=== PATIENT | female | born 1950 | race Caucasian/White ===

== ENCOUNTER 2016-04-21 17:37 | Inpatient (IN) | payer BC ==
--- NOTE | 2016-04-21 18:50 | EDM.PDOC ---
ED HISTORY OF PRESENT ILLNESS - General Chief Complaint: Respiratory Problem Stated Complaint: FLUID ON LEGS AND SOB Time Seen by Provider: 04/21/16 18:30 Source: Reports: Patient, Family History Limitations: Reports: No limitations - History of Present Illness INITIAL COMMENTS - FREE TEXT/NARRATIVE: 65-year-old female with peripheral edema and congestive heart failure was just recently in the hospital for IV diuresis, had a clinic followup on and was doing reasonable but over the past 3 days has worsened, increased peripheral edema, increase shortness of breath and weakness with frequent falls. He has facial bruising and chest bruising from her falls. No significant pain. No fevers or chills. Her lower left leg is weeping from the edema. Severity: moderate Associated Symptoms: Reports: shortness of breath, other (Worsening activity tolerance). Denies: fever/chills, headaches - Related Data Allergies/ADRs: Allergies Allergy/AdvReac Type Severity Reaction Status Date / Time azithromycin Allergy Severe Difficulty Verified 04/22/16 07:40 Breathing metronidazole [From Flagyl] Allergy Intermediate Rash Verified 04/21/16 18:11 Metronidazole HCl Allergy Intermediate Rash Verified 04/21/16 18:11 [From Flagyl] sulfamethoxazole Allergy Intermediate Rash Verified 04/21/16 18:11 [From Septra] trimethoprim [From Septra] Allergy Intermediate Rash Verified 04/21/16 18:11 nickel Allergy Rash Verified 04/21/16 18:11 midazolam [From Versed] AdvReac Vomiting Verified 04/22/16 07:40 morphine AdvReac Confusion Verified 04/22/16 07:40 tape Allergy Rash Uncoded 04/21/16 18:11 Home Meds: Home Meds Estrogens, Conjugated [Premarin] 1.25 mg PO DAILY 05/16/13 [History] Gabapentin 3 tab PO QID PRN 05/16/13 [History] Calcium Carbonate/Vitamin D3 [Calcium 600 + Vit D Tablet] 4 tab PO DAILY [History] Cholecalciferol (Vitamin D3) [Vitamin D3] 1 tab PO DAILY 04/27/14 [History] Fluocinonide [Lidex 0.05% Gel] 1 applic TOP ASDIRECTED PRN 04/27/14 [History] LORazepam 0.5 mg PO TID PRN 04/27/14 [History] Thiamine HCl 1 tab PO DAILY 04/27/14 [History] Vitamin B Complex [Balanced B-100] 1 tab PO DAILY 04/27/14 [History] Albuterol Sulfate [Proair Hfa] 2 puff INH Q4H PRN 07/14/14 [History] Bumetanide [Bumex] 2 mg PO BID 07/14/14 [History] Nabumetone [Relafen] 1 tab PO BID 07/14/14 [History] Acetaminophen/Caffeine [Excedrin Tension Headache] 3 tab PO Q6HR 04/06/15 [ History] Budesonide/Formoterol [Symbicort 160-4.5 MCG] 2 puff INH BID 04/06/15 [History] Methocarbamol [Robaxin] 1,000 mg PO BEDTIME 04/09/16 [History] Methocarbamol [Robaxin] 500 mg PO BID PRN 04/09/16 [History] Levalbuterol HCl [Xopenex] 1.25 mg NEB BIDRT #120 neb 04/12/16 [Rx] Gabapentin [Gabapentin] 4 tab PO TID 04/21/16 [History] Levalbuterol HCl [Levalbuterol Concentrate] 1 ampule INH BID 04/21/16 [History] Prednisone [IMW: predniSONE] 20 mg PO DAILY 04/21/16 [History] Venlafaxine [Effexor] 37.5 mg PO DAILY 04/22/16 [History] Past Medical History Respiratory History: Reports: Bronchitis, recurrent, Pneumonia, recurrent, Sleep apnea Other Respiratory History: Endotrachial bronchial malasia. Bronchiectasis. Recent sleep study conducted on 03/30/2015 [employer] History: Reports: Other OB/BYN History: bladder sling Neurological History: Reports: Other (see below) Other Neuro History: nerve root decompression Psychiatric History: Reports: Depression - Past Surgical History GI Surgical History: Reports: Appendectomy, Bariatric procedure, Cholecystectomy , Colonoscopy, EGD, Hernia repair/other, Other (see below) Other GI Surgeries/Procedures: Paniculectomy Other Musculoskeletal Surgeries/Procedures:: Foot surgery. ankle surgery. Nerve stimulator implant Social & Family History - Family History Family Medical History: Noncontributory - Tobacco Use Smoking Status *Q: Never Smoker Second Hand Smoke Exposure: Yes - Caffeine Use Caffeine Use: Reports: Coffee Other Caffeine Use: 1 to 2 cups per day - Alcohol Use Days Per Week of Alcohol Use: 7 Number of Drinks Per Day: 1 Total Drinks Per Week: 7 - Recreational Drug Use Recreational Drug Use: No - Living Situation & Occupation Living situation: Reports: , with spouse Occupation: disabled ED ROS GENERAL - Review of Systems Review Of Systems: See Below Constitutional: Reports: malaise, weakness. Denies: fever, chills HEENT: Reports: No symptoms Respiratory: Reports: shortness of breath. Denies: cough Cardiovascular: Reports: Lightheadedness, Syncope. Denies: Chest pain, Palpitations GI/Abdominal: Denies: Abdominal pain, Nausea, Vomiting : Reports: no symptoms Skin: Reports: bruising Neurological: Reports: syncope, weakness Psychiatric: Reports: No symptoms ED EXAM, GENERAL - Physical Exam Exam: See Below Exam Limited By: No limitations General Appearance: alert, no apparent distress (Patient has a normal O2 saturation at rest but does appear to be somewhat short of breath) Respiratory/Chest: no respiratory distress, crackles (A few extreme basilar crackles but overall good air movement) Cardiovascular: regular rate, rhythm. No: tachycardia GI/Abdominal: non tender Extremities: pedal edema (2+ pedal edema of both lower extremities with some weeping of serosanguinous fluid from the left lower leg) Neurological: alert, oriented Psychiatric: normal affect, normal mood Skin Exam: Other (Patient has widespread bruising of the chest and face as well as her arms) Course - Vital Signs Last Recorded V/S: Last Vital Signs Temp 97.3 F 04/22/16 14:36 Pulse 82 04/22/16 14:36 Resp 17 04/22/16 14:36 BP 115/78 04/22/16 14:36 Pulse Ox 90 L 04/22/16 14:36 - Orders/Labs/Meds Orders: Active Orders 24 hr Category Date Time Status CULTURE BLOOD [BC] Urgent Lab 04/21/16 19:50 Received CULTURE BLOOD [BC] Urgent Lab 04/21/16 20:00 Received Blood Culture x2 Reflex Set [OM.PC] Urgent Oth 04/21/16 19:44 Ordered Medication Orders Albuterol (Proventil Neb Soln) 2.5 mg NEB Q4H PRN PRN Reason: Shortness Of Breath/wheezing Albuterol/Ipratropium (Duoneb 3.0-0.5 Mg/3 Ml) 3 ml NEB QID PRN PRN Reason: Shortness Of Breath/wheezing Bisacodyl (Dulcolax) 5 mg PO DAILY PRN PRN Reason: Constipation Docusate Sodium (Colace) 100 mg PO BID PRN PRN Reason: Constipation Estrogens Conjugated (Premarin) 1.25 mg PO DAILY [facility] Last Admin: 04/22/16 16:09 Dose: 1.25 mg Hydromorphone HCl (Dilaudid) 1 mg IVPUSH Q2H PRN PRN Reason: Pain Lorazepam (Ativan) 1 mg IV Q6H PRN PRN Reason: Nausea/Vomiting Lorazepam (Ativan) 0.5 mg PO TID PRN PRN Reason: anxiety Last Admin: 04/22/16 16:10 Dose: 0.5 mg Admin: 04/22/16 09:45 Dose: 0.5 mg Admin: 04/22/16 00:35 Dose: 0.5 mg Methocarbamol (Robaxin) 500 mg PO BID PRN PRN Reason: Pain Last Admin: 04/22/16 16:10 Dose: 500 mg Admin: 04/22/16 09:44 Dose: 500 mg Methocarbamol (Robaxin) 1,000 mg PO BEDTIME [facility] Mometasone Furoate/Formoterol Fumar (Dulera 200-5 Mcg) 0 puff IH BIDRT [facility] Last Admin: 04/22/16 08:52 Dose: 2 puff Ondansetron HCl (Zofran Odt) 4 mg PO Q6H PRN PRN Reason: Nausea able to take PO Oxycodone/Acetaminophen (Percocet 325-5 Mg) 0 tab PO Q4H PRN PRN Reason: Pain Last Admin: 04/22/16 00:35 Dose: 1 tab Pantoprazole Sodium (Protonix Iv) 40 mg IVPUSH BEDTIME [facility] Sodium Chloride (Saline Flush) 10 ml FLUSH ASDIRECTED PRN PRN Reason: Keep Vein Open Thiamine HCl (Vitamin B-1) 100 mg PO DAILY [facility] Last Admin: 04/22/16 09:31 Dose: 100 mg Venlafaxine HCl (Effexor Xr) 37.5 mg PO DAILY [facility] Last Admin: 04/22/16 16:09 Dose: 37.5 mg Zolpidem Tartrate (Ambien) 5 mg PO BEDTIME PRN PRN Reason: Sleep Last Admin: 04/22/16 00:35 Dose: 5 mg Labs: Laboratory Tests 04/21/16 04/21/16 04/21/16 Range/Units 18:42 18:42 19:30 WBC 18.7 H (4.5-11.0) K/uL RBC 3.49 (3.30-5.50) M/uL Hgb 10.2 L (12.0-15.0) g/dL Hct 31.2 L (36.0-48.0) % MCV 89 (80-98) fL MCH 29 (27-31) pg MCHC 33 (32-36) % Plt Count 361 (150-400) K/uL Neut % (Auto) 93 H (36-66) % Lymph % (Auto) 4 L (24-44) % [place] % (Auto) 3 (2-6) % Eos % (Auto) 0 L (2-4) % Baso % (Auto) 0 (0-1) % PT 10.3 (9.5-12.0) sec INR 0.97 (0.80-1.20) Sodium 140 (140-148) mmol/L Potassium 2.3 L* (3.6-5.2) mmol/L Chloride 100 (100-108) mmol/L Carbon Dioxide 30 (21-32) mmol/L Anion Gap 12.3 (5.0-14.0) mmol/L BUN 15 D (7-18) mg/dL Creatinine 1.2 H (0.6-1.0) mg/dL Est Cr Clr Drug Dosing 34.02 mL/min Estimated GFR (MDRD) 45 L (>60) Glucose 162 H (74-106) mg/dL Lactic Acid (0.4-2.0) mmol/L Calcium 8.3 L (8.5-10.1) mg/dL Magnesium (1.8-2.4) mg/dL Total Bilirubin 1.5 H D (0.2-1.0) mg/dL AST 42 H (15-37) U/L ALT 47 D (12-78) U/L Alkaline Phosphatase 58 (46-116) U/L [id number] Pept (5-125) pg/mL Total Protein 5.9 L (6.4-8.2) g/dL Albumin 2.9 L (3.4-5.0) g/dL Globulin 3.0 (2.3-3.5) g/dL Albumin/Globulin Ratio 1.0 L (1.2-2.2) Amylase (25-115) U/L Lipase (73-393) U/L 04/21/16 04/21/16 Range/Units 19:30 19:30 WBC (4.5-11.0) K/uL RBC (3.30-5.50) M/uL Hgb (12.0-15.0) g/dL Hct (36.0-48.0) % MCV (80-98) fL MCH (27-31) pg MCHC (32-36) % Plt Count (150-400) K/uL Neut % (Auto) (36-66) % Lymph % (Auto) (24-44) % Thur[place] % (Auto) (2-6) % Eos % (Auto) (2-4) % Baso % (Auto) (0-1) % PT (9.5-12.0) sec INR (0.80-1.20) Sodium (140-148) mmol/L Potassium (3.6-5.2) mmol/L Chloride (100-108) mmol/L Carbon Dioxide (21-32) mmol/L Anion Gap (5.0-14.0) mmol/L BUN (7-18) mg/dL Creatinine (0.6-1.0) mg/dL Est Cr Clr Drug Dosing mL/min Estimated GFR (MDRD) (>60) Glucose (74-106) mg/dL Lactic Acid 2.4 H (0.4-2.0) mmol/L Calcium (8.5-10.1) mg/dL Magnesium 1.5 L (1.8-2.4) mg/dL Total Bilirubin (0.2-1.0) mg/dL AST (15-37) U/L ALT (12-78) U/L Alkaline Phosphatase (46-116) U/L Hml-B-Suwrohxaays Pept 967 H (5-125) pg/mL Total Protein (6.4-8.2) g/dL Albumin (3.4-5.0) g/dL Globulin (2.3-3.5) g/dL Albumin/Globulin Ratio (1.2-2.2) Amylase 23 L (25-115) U/L Lipase 76 (73-393) U/L Meds: Medications Generic Name Dose Route Start Last Admin Trade Name Freq PRN Reason Stop Dose Admin Albuterol 2.5 mg 04/21/16 22:24 Proventil Neb Soln NEB Q4H PRN Shortness Of Breath/wheezing Albuterol/Ipratropium 3 ml 04/21/16 22:24 Duoneb 3.0-0.5 Mg/3 Ml NEB QID PRN Shortness Of Breath/wheezing Bisacodyl 5 mg 04/21/16 22:24 Dulcolax PO DAILY PRN Constipation Docusate Sodium 100 mg 04/21/16 22:24 Colace PO BID PRN Constipation Estrogens Conjugated 1.25 mg 04/22/16 15:30 04/22/16 16:09 Premarin PO 1.25 mg DAILY CARIE Administration Hydromorphone HCl 1 mg 04/21/16 22:24 Dilaudid IVPUSH Q2H PRN Pain Lorazepam 1 mg 04/21/16 22:24 Ativan IV Q6H PRN Nausea/Vomiting Lorazepam 0.5 mg 04/21/16 22:24 04/22/16 16:10 Ativan PO 0.5 mg TID PRN Administration anxiety Methocarbamol 500 mg 04/21/16 22:24 04/22/16 16:10 Robaxin PO 500 mg BID PRN Administration Pain Methocarbamol 1,000 mg 04/22/16 21:00 Robaxin PO BEDTIME CARIE Mometasone Furoate/Formoterol Fumar 0 puff 04/22/16 08:00 04/22/16 08:52 Dulera 200-5 Mcg IH 2 puff BIDRT CARIE Administration Ondansetron HCl 4 mg 04/21/16 22:24 Zofran Odt PO Q6H PRN Nausea able to take PO Oxycodone/Acetaminophen 0 tab 04/21/16 22:24 04/22/16 00:35 Percocet 325-5 Mg PO 1 tab Q4H PRN Administration Pain Pantoprazole Sodium 40 mg 04/22/16 21:00 Protonix Iv IVPUSH BEDTIME CARIE Sodium Chloride 10 ml 04/21/16 22:24 Saline Flush FLUSH ASDIRECTED PRN Keep Vein Open Thiamine HCl 100 mg 04/22/16 09:00 04/22/16 09:31 Vitamin B-1 PO 100 mg DAILY CARIE Administration Venlafaxine HCl 37.5 mg 04/22/16 15:30 04/22/16 16:09 Effexor Xr PO 37.5 mg DAILY CARIE Administration Zolpidem Tartrate 5 mg 04/21/16 22:24 04/22/16 00:35 Ambien PO 5 mg BEDTIME PRN Administration Sleep Discontinued Medications Generic Name Dose Route Start Last Admin Trade Name Freq PRN Reason Stop Dose Admin Bumetanide 4 mg 04/21/16 20:52 04/21/16 21:03 Bumex IVPUSH 04/21/16 20:53 4 mg ONETIME ONE Administration Potassium Chloride 40 meq/ 100 mls @ 25 mls/hr 04/21/16 19:46 04/21/16 20:26 Premix IV 04/21/16 23:45 25 mls/hr ONETIME ONE Administration Sodium Chloride 1,000 mls @ 75 mls/hr 04/21/16 20:00 04/21/16 20:29 Normal Saline IV 75 mls/hr ASDIRECTED CARIE Administration Magnesium Sulfate 2 gm/ Premix 50 mls @ 12.5 mls/hr 04/21/16 22:24 04/22/16 00:33 IV 04/22/16 02:23 12.5 mls/hr ONETIME ONE Administration Potassium Chloride 20 meq/ 112 mls @ 56 mls/hr 04/22/16 08:30 04/22/16 11:33 Lidocaine HCl 2 ml/ Sodium IV 04/22/16 12:29 56 mls/hr Chloride Q2H CARIE Administration Lidocaine HCl Confirm 04/21/16 20:15 04/21/16 20:31 Xylocaine-Mpf 1% Administered 04/21/16 20:16 Not Given Dose 5 ml .ROUTE .STK-MED ONE Mometasone Furoate/Formoterol Fumar 0 puff 04/22/16 07:00 04/22/16 09:44 Dulera 200-5 Mcg IH Not Given BIDRT CARIE Potassium Chloride 40 meq 04/21/16 22:24 04/22/16 00:32 Klor-Con M20 PO 04/21/16 22:25 40 meq ONETIME ONE Administration Potassium Chloride 40 meq 04/22/16 08:00 04/22/16 09:30 Klor-Con M20 PO 04/22/16 08:01 40 meq ONETIME ONE Administration Potassium Chloride 40 meq 04/22/16 14:30 04/22/16 16:08 Klor-Con M20 PO 04/22/16 14:31 40 meq ONETIME ONE Administration - Re-Assessments/Exams Free Text/Narrative Re-Assessment/Exam: 04/21/16 18:50 A two-view chest x-ray was obtained along with a CBC and CMP. Patient will likely need readmission for diuresis. 04/21/16 19:17 Chest x-ray shows no evidence of failure and is consistent with previous chest x -ray 2 weeks ago. White count is now elevated 18,000, may be steroid effect she has no fever. Potassium is critically low at 2.3. Findings were discussed with Brittany Villa of the hospitalist service and she will assess the patient for admission. Departure - Departure Time of Disposition: 22:25 Disposition: Admitted As Inpatient 67 Condition: fair Clinical Impression: Hypokalemia, Peripheral edema Chronic obstructive lung disease Qualifiers: COPD type: chronic bronchitis Chronic bronchitis type: mixed simple and mucopurulent Qualified Code(s): J41.8 - Mixed simple and mucopurulent chronic bronchitis
[2016-04-21] MEDS ORDERED: Potassium Chloride 40 MEQ in Premix Bag 1 BAG IV ONE (19:46)
[2016-04-21] MEDS ORDERED: Sodium Chloride 0.9% 1,000 ML IV SCH (20:00)
--- NOTE | 2016-04-21 20:05 | PCM.HP ---
H&P History of Present Illness - General Date of Service: 04/21/16 Source of Information: Patient, Family (Chandrakant) - History of Present Illness Initial Comments - Free Text/Narative: INITIAL COMMENTS - FREE TEXT/NARRATIVE: 65-year-old female with peripheral edema and congestive heart failure was just recently in the hospital for IV diuresis, had a clinic followup on and was doing reasonable but over the past 3 days has worsened, increased peripheral edema, increase shortness of breath and weakness with frequent falls. He has facial bruising and chest bruising from her falls. No significant pain. No fevers or chills. Her lower left leg is weeping from the edema. Severity: moderate Associated Symptoms: Reports: shortness of breath, other (Worsening activity tolerance). Denies: fever/chills, headaches 04/21/16 18:50 A two-view chest x-ray was obtained along with a CBC and CMP. Patient will likely need readmission for diuresis. 04/21/16 19:17 Chest x-ray shows no evidence of failure and is consistent with previous chest x -ray 2 weeks ago. White count is now elevated 18,000, may be steroid effect she has no fever. Potassium is critically low at 2.3. Findings were discussed with Brittany Villa of the hospitalist service and she will assess the patient for admission. Forms: ED Department Discharge Care Plan Goals: Patient will be assessed by Brittany Villa of the hospitalist service for admission for diuresis and treatment of the hypokalemia. She may need a social service consultation for some post discharge planning. Onset of Symptoms: Reports: gradual (X3 days, but has been sick for the past couple weeks.) Duration of Symptoms: Reports: Getting worse Location: Reports: generalized Severity: moderate Improves with: Reports: Rest Worsens with: Reports: Movement Context: Reports: other ("Falls at home due to weakness) Associated Symptoms: Reports: cough (Chronic x3 years, asthma, tracheomalacia, nonsmoker.) Chest Pain Score (Numeric/FACES): 2 Denies Pain Score (Numeric/FACES): 2 - Related Data Allergies/Adverse Reactions: Allergies Allergy/AdvReac Type Severity Reaction Status Date / Time metronidazole [From Flagyl] Allergy Intermediate Rash Verified 04/21/16 18:11 Metronidazole HCl Allergy Intermediate Rash Verified 04/21/16 18:11 [From Flagyl] sulfamethoxazole Allergy Intermediate Rash Verified 04/21/16 18:11 [From Septra] trimethoprim [From Septra] Allergy Intermediate Rash Verified 04/21/16 18:11 azithromycin Allergy Difficulty Verified 04/21/16 18:11 Breathing midazolam [From Versed] Allergy Vomiting Verified 04/21/16 18:11 morphine Allergy Confusion Verified 04/21/16 18:11 nickel Allergy Rash Verified 04/21/16 18:11 tape Allergy Rash Uncoded 04/21/16 18:11 Home Medications: Home Meds Estrogens, Conjugated [Premarin] 1.25 mg PO DAILY 05/16/13 [History] Gabapentin 3 tab PO QID PRN 05/16/13 [History] Calcium Carbonate/Vitamin D3 [Calcium 600 + Vit D Tablet] 4 tab PO DAILY [History] Cholecalciferol (Vitamin D3) [Vitamin D3] 1 tab PO DAILY 04/27/14 [History] Fluocinonide [Lidex 0.05% Gel] 1 applic TOP ASDIRECTED PRN 04/27/14 [History] LORazepam 0.5 mg PO TID PRN 04/27/14 [History] Thiamine HCl 1 tab PO DAILY 04/27/14 [History] Vitamin B Complex [Balanced B-100] 1 tab PO DAILY 04/27/14 [History] Albuterol Sulfate [Proair Hfa] 2 puff INH Q4H PRN 07/14/14 [History] Bumetanide [Bumex] 2 mg PO BID 07/14/14 [History] Nabumetone [Relafen] 1 tab PO BID 07/14/14 [History] Acetaminophen/Caffeine [Excedrin Tension Headache] 3 tab PO Q6HR 04/06/15 [ History] Budesonide/Formoterol [Symbicort 160-4.5 MCG] 2 puff INH BID 04/06/15 [History] Methocarbamol [Robaxin] 500 mg PO BID 04/09/16 [History] Methocarbamol [Robaxin] 500 mg PO BID PRN 04/09/16 [History] Levalbuterol HCl [Xopenex] 1.25 mg NEB BIDRT #120 neb 04/12/16 [Rx] Gabapentin [Gabapentin] 4 tab PO TID 04/21/16 [History] Levalbuterol HCl [Levalbuterol Concentrate] 1 ampule INH BID 04/21/16 [History] Prednisone [IMW: predniSONE] 20 mg PO DAILY 04/21/16 [History] Past Medical History Respiratory History: Reports: Bronchitis, recurrent, Pneumonia, recurrent, Sleep apnea Other Respiratory History: Endotrachial bronchial malasia. Bronchiectasis. Recent sleep study conducted on 03/30/2015 [employer] History: Reports: Other OB/BYN History: bladder sling Neurological History: Reports: Other (see below) Other Neuro History: nerve root decompression Psychiatric History: Reports: Depression Dermatologic History: Reports: Other (see below) (Allergy to tape , does tolerate Tegaderm or colban) - Past Surgical History GI Surgical History: Reports: Appendectomy, Bariatric procedure, Cholecystectomy , Colonoscopy, EGD, Hernia repair/other, Other (see below) Other GI Surgeries/Procedures: Paniculectomy Other Musculoskeletal Surgeries/Procedures:: Foot surgery. ankle surgery. Nerve stimulator implant Social & Family History - Family History Family Medical History: Noncontributory - Tobacco Use Smoking Status *Q: Never Smoker Second Hand Smoke Exposure: Yes - Caffeine Use Caffeine Use: Reports: Coffee Other Caffeine Use: 1 to 2 cups per day - Alcohol Use Days Per Week of Alcohol Use: 7 Number of Drinks Per Day: 1 Total Drinks Per Week: 7 - Recreational Drug Use Recreational Drug Use: No - Living Situation & Occupation Living situation: Reports: (Lives with her Chandrakant, in [facility], 2 children.), with spouse Occupation: disabled H&P Review of Systems - Review of Systems: Review Of Systems: See Below (Out of 40 that he) General: Reports: weakness, fatigue HEENT: Reports: glasses Pulmonary: Reports: shortness of breath (With activity), cough (Chronic x3 years ) Cardiovascular: Reports: orthopnea, edema (Bilateral peripheral edema lower legs ), other (History of heart valves.) Gastrointestinal: Reports: No symptoms Genitourinary: Reports: urgency (But feels decreased amounts of urine output today) Musculoskeletal: Reports: muscle pain, muscle stiffness Skin: Reports: pallor, bruising (Noted to face, arms,u chest, abdomen, upper legs), other (Left leg with weeping clear discharge) Psychiatric: Reports: no symptoms, anxiety (Chronic) Neurological: Reports: no symptoms Hematologic/Lymphatic: Reports: easy bleeding, easy bruising Immunologic: Reports: other (Multiple allergies noted) Exam - Exam Exam: See Below - Vital Signs Vital Signs: Last Vital Signs Temp 36.7 C 04/21/16 18:25 Pulse 100 04/21/16 18:25 Resp 18 04/21/16 18:25 BP 151/79 H 04/21/16 18:25 Pulse Ox 97 04/21/16 18:25 Weight: 71.214 kg - Exam General: alert, oriented, cooperative, mild distress HEENT: PERRLA, Conjunctiva clear, EACs clear, EOMI, Hearing intact Neck: supple, trachea midline Lungs: Clear to auscultation, Normal respiratory effort Cardiovascular: regular rate, regular rhythm, other (Murmur present) Abdomen: normal bowel sounds, soft (Female) Exam: Deferred Rectal (Female) Exam: Deferred Back Exam: normal inspection, full range of motion Extremities: edema (Weeping left lower leg) Skin: warm, dry, other (Left lower leg wrapped in pad due to edema and clear discharge) Neurological: strength equal bilateral, normal speech Neuro Extensive - Mental Status: alert, oriented x3, normal mood/affect, normal cognition, memory intact Psychiatric: alert, normal affect, normal mood - Patient Data Lab Results last 24 hrs: Laboratory Results - last 24 hr 04/21/16 04/21/16 Range/Units 18:42 18:42 WBC 18.7 H (4.5-11.0) K/uL RBC 3.49 (3.30-5.50) M/uL Hgb 10.2 L (12.0-15.0) g/dL Hct 31.2 L (36.0-48.0) % MCV 89 (80-98) fL MCH 29 (27-31) pg MCHC 33 (32-36) % Plt Count 361 (150-400) K/uL Neut % (Auto) 93 H (36-66) % Lymph % (Auto) 4 L (24-44) % [place]man % (Auto) 3 (2-6) % Eos % (Auto) 0 L (2-4) % Baso % (Auto) 0 (0-1) % Sodium 140 (140-148) mmol/L Potassium 2.3 L* (3.6-5.2) mmol/L Chloride 100 (100-108) mmol/L Carbon Dioxide 30 (21-32) mmol/L Anion Gap 12.3 (5.0-14.0) mmol/L BUN 15 D (7-18) mg/dL Creatinine 1.2 H (0.6-1.0) mg/dL Est Cr Clr Drug Dosing 34.02 mL/min Estimated GFR (MDRD) 45 L (>60) Glucose 162 H (74-106) mg/dL Calcium 8.3 L (8.5-10.1) mg/dL Total Bilirubin 1.5 H D (0.2-1.0) mg/dL AST 42 H (15-37) U/L ALT 47 D (12-78) U/L Alkaline Phosphatase 58 (46-116) U/L Total Protein 5.9 L (6.4-8.2) g/dL Albumin 2.9 L (3.4-5.0) g/dL Globulin 3.0 (2.3-3.5) g/dL Albumin/Globulin Ratio 1.0 L (1.2-2.2) Result Diagrams: 04/22/16 05:00 04/22/16 05:00 *Q Meaningful Use (ADM) - VTE *Q VTE Criteria *Q: - Stroke *Q Stroke Criteria *Q: - AMI *Q AMI Criteria *Q: - Problem List (1) Hypokalemia SNOMED Code(s): 03139946 ICD Code: E87.6 - HYPOKALEMIA Status: Acute Priority: High Current Visit: Yes (2) Peripheral edema SNOMED Code(s): 507847697 ICD Code: R60.9 - EDEMA, UNSPECIFIED Status: Acute Priority: High Current Visit: Yes (3) Chronic obstructive lung disease SNOMED Code(s): 75073445 ICD Code: J44.9 - CHRONIC OBSTRUCTIVE PULMONARY DISEASE, UNSPECIFIED Status : Chronic Priority: High Current Visit: Yes Qualifiers: COPD type: chronic bronchitis Chronic bronchitis type: mixed simple and mucopurulent Qualified Code(s): J41.8 - Mixed simple and mucopurulent chronic bronchitis (4) Frequent falls SNOMED Code(s): 259100810 ICD Code: R29.6 - REPEATED FALLS Status: Acute Priority: High Current Visit: Yes Problem List Initiated/Reviewed/Updated: Yes Orders Last 24hrs: Active Orders 24 hr Category Date Time Status Chest 2V [CR] Routine Exams 04/21/16 18:36 Taken AMYLASE [CHEM] Urgent Lab 04/21/16 19:30 Received CULTURE BLOOD [BC] Urgent Lab 04/21/16 19:45 Ordered CULTURE BLOOD [BC] Urgent Lab 04/21/16 19:45 Ordered INR,PT,PROTHROMBIN TIME [COAG] Urgent Lab 04/21/16 19:30 Received LACTIC ACID [CHEM] Stat Lab 04/21/16 19:30 Received LIPASE [CHEM] Urgent Lab 04/21/16 19:30 Received MAGNESIUM [CHEM] Urgent Lab 04/21/16 19:30 Received PRO B-TYPE NATRIUR PEPT,BNPPRO [CHEM] Urgent Lab 04/21/16 19:30 Received UA W/MICROSCOPIC [URIN] Stat Lab 04/21/16 19:44 Uncollected Potassium Chloride [KCL 40 MEQ in Water 100 ML] 40 meq Med 04/21/16 19:46 Active Premix Bag 1 bag IV ONETIME Sodium Chloride 0.9% [Normal Saline] 1,000 ml Med 04/21/16 20:00 Active IV ASDIRECTED Blood Culture x2 Reflex Set [OM.PC] Urgent Oth 04/21/16 19:44 Ordered Medication Orders Potassium Chloride 40 meq/ (Premix) 100 mls @ 25 mls/hr IV ONETIME ONE Stop: 04/21/16 23:45 Sodium Chloride (Normal Saline) 1,000 mls @ 75 mls/hr IV ASDIRECTED [facility] Assessment/Plan Comment:: ASSESSMENT / PLAN This is a year-old female with peripheral edema and congestive heart failure was just recently in the hospital for IV diuresis, had a clinic followup on and was doing reasonable but over the past 3 days has worsened, increased peripheral edema, increase shortness of breath and weakness with frequent falls. He has facial bruising and chest bruising from her falls. No significant pain. No fevers or chills. Her lower left leg is weeping from the edema. Severity: moderate Associated Symptoms: Reports: shortness of breath, other (Worsening activity tolerance). Denies: fever/chills, headaches A two-view chest x-ray was obtained along with a CBC and CMP. Patient will likely need readmission for diuresis. 04/21/16 19:17 Chest x-ray shows no evidence of failure and is consistent with previous chest x -ray 2 weeks ago. White count is now elevated 18,000, may be steroid effect she has no fever. Potassium is critically low at 2.3. Plan: Admit to [address] [place] [address] Hypokalemia -Potassium IV 40 meq , PO 40 meq -Mag.Sulfate 2 gram over 4 hours -repeat K+ in am -am labs; CBC,BMP, MG++ -Tele Peripheral Edema -Bumex IV 4mg one time -will need to reassess in am -saline lock COPD -Nebulizer treatments prn -continue home medication -supplemental oxygen prn -blood cultures pending -ok to sleep in recliner, patient reports has not slept in a bed in 3 years. frequent falls as home -PT and OT evaluation -high risk for falls. Maintenance issues -Orders home meds: -Nutrition: Regular diet -Abdul catheter not indicated at this time -DVT prophylaxis: SCD -GI Prophylaxis; Protonix 40mg daily -Tape allergy; avoid all tape and adhesive except for tegaderm and colban CODE STATUS: Full Admission status: Admit to [address] [place] [address] Admission justification. This patient will be admitted for inpatient services and is medically appropriate meeting medical necessity for inpatient admission as outlined in my documentation. I reasonably expect the patient will require inpatient services that span. Time over 2 midnights. I reasonably expect this patient to be discharged or transferred within 96 hours after admission to the critical access hospital. Disposition;home with Chandrakant call [phone] for any emergency or Primary care provider: Dr. Tam
[2016-04-21] MEDS ORDERED: Bumetanide 2.5 MG/10 ML MDV IVPUSH ONE (20:52)
[2016-04-21] MEDS ORDERED: Docusate Sodium 100 MG Cap PO PRN (22:24)
[2016-04-21] MEDS ORDERED: Bisacodyl 5 MG Tab PO PRN (22:24)
[2016-04-21] MEDS ORDERED: Albuterol 0.083% 2.5 MG/3 ML Neb Soln NEB PRN (22:24)
[2016-04-21] MEDS ORDERED: Ondansetron 4 MG Tab.DIS PO PRN (22:24)
[2016-04-21] MEDS ORDERED: Potassium Chloride 20 MEQ Tab.ER PO ONE (22:24)
[2016-04-21] MEDS ORDERED: Sodium Chloride 0.9% 10 ML Syringe FLUSH PRN (22:24)
[2016-04-21] MEDS ORDERED: Albuterol/Ipratropium 3.0-0.5 MG/3 ML Neb Soln NEB PRN (22:24)
[2016-04-21] MEDS ORDERED: LORazepam 2 MG/ML MDV IV PRN (22:24)
[2016-04-21] MEDS ORDERED: Magnesium Sulfate/Water 2 GM in Premix Bag 1 BAG IV ONE (22:24)
[2016-04-21] MEDS ORDERED: HYDROmorphone 1 MG/ML Syringe IVPUSH PRN (22:24)
[2016-04-22] MEDS: Acetaminophen/oxyCODONE 325-5 MG Tab PO PRN ×2 (00:35→22:23)
[2016-04-22] MEDS: Zolpidem 5 MG Tab PO PRN ×2 (00:35→22:15)
[2016-04-22] MEDS: LORazepam 0.5 MG Tab PO PRN ×5 (00:35→23:04)
--- NOTE | 2016-04-22 06:24 | PCM.SN ---
- Free Text/Narrative Note: time : 7:01 call from [address] [place] [address]; Potassium 2.7 a; hypokalemia p; order Potassium IV 40 meq, Po 40meq, repeat Potassium in 6 hours. Mag++ pending.
[2016-04-22] MEDS ORDERED: Formoterol/Mometasone 200-5 MCG 8.8 GM Inhaler IH SCH ×2 (07:00→21:00)
[2016-04-22] MEDS ORDERED: Potassium Chloride 20 MEQ in Premix Bag 1 BAG IV SCH (07:00)
[2016-04-22] MEDS ORDERED: Potassium Chloride 20 MEQ Tab.ER PO ONE ×3 (08:00→14:30)
[2016-04-22] MEDS ORDERED: Potassium Chloride 40 MEQ in Premix Bag 1 BAG IV ONE (08:37)
[2016-04-22] MEDS: Formoterol/Mometasone 200-5 MCG 8.8 GM Inhaler IH SCH ×2 (08:52→22:13)
[2016-04-22] MEDS: Thiamine 100 MG Tab PO SCH (09:31)
[2016-04-22] MEDS: Potassium Chloride 20 MEQ, Lidocaine 1% 2 ML in Sodium Chloride 0.9% 100 ML IV SCH ×2 (09:31→11:33)
[2016-04-22] MEDS: Methocarbamol 500 MG Tab PO PRN ×2 (09:44→16:10)
--- NOTE | 2016-04-22 10:12 | CR ---
Two-view chest Comparison: 08 April 2016. Findings: The heart and vascular structures are stable. There are no infiltrates or effusions. Chron ic degenerative findings of lower thoracic spine. Stimulator leads are unchanged in position. Impression: 1. No acute findings.
--- NOTE | 2016-04-22 14:00 | PCM.PN ---
- General Info Date of Service: 04/22/16 Functional Status: Reports: pain controlled - Review of Systems General: Reports: weakness. Denies: fever, chills Pulmonary: Reports: shortness of breath. Denies: pleuritic chest pain, cough, sputum, hemoptysis, wheezing Cardiovascular: Reports: dyspnea on exertion. Denies: chest pain, palpitations , orthopnea, PND, edema, lightheadedness Gastrointestinal: Reports: No symptoms Systems Review Comment:: This patient is a 75-year-old woman who is admitted through the emergency department yesterday because of peripheral edema, increased shortness of breath , and severe hypokalemia. She's had recent difficulty with increase in peripheral edema and was started on outpatient diuretic therapy. Over the past few days has become progressively more short of breath and weak with recurrent falls. Edema has improved since admission with use of IV Bumex. Continues to report symptoms of shortness of breath, oxygen saturations have been good on current level of supplemental oxygen - Patient Data Vitals - most recent: Last Vital Signs Temp 96.7 F 04/22/16 11:23 Pulse 99 04/22/16 11:23 Resp 17 04/22/16 11:23 BP 115/70 04/22/16 11:23 Pulse Ox 95 04/22/16 11:23 Weight - most recent: 155 lb 0.006 oz I&O - last 24 hours: Intake & Output 04/21/16 04/22/16 04/22/16 22:59 06:59 14:59 Intake Total 690 790 Output Total 1200 1100 Balance -510 -310 Lab Results last 24 hrs: Laboratory Results - last 24 hr 04/21/16 04/22/16 04/22/16 Range/Units 21:15 05:00 05:00 WBC 11.3 H (4.5-11.0) K/uL RBC 3.07 L (3.30-5.50) M/uL Hgb 9.1 L (12.0-15.0) g/dL Hct 27.7 L (36.0-48.0) % MCV 90 (80-98) fL MCH 30 (27-31) pg MCHC 33 (32-36) % Plt Count 338 (150-400) K/uL Neut % (Auto) 77 H (36-66) % Lymph % (Auto) 14 L (24-44) % [facility] % (Auto) 7 H (2-6) % Eos % (Auto) 1 L (2-4) % Baso % (Auto) 0 (0-1) % Sodium 142 (140-148) mmol/L Potassium 2.7 L* (3.6-5.2) mmol/L Chloride 104 (100-108) mmol/L Carbon Dioxide 30 (21-32) mmol/L Anion Gap 10.7 (5.0-14.0) mmol/L BUN 14 (7-18) mg/dL Creatinine 1.0 (0.6-1.0) mg/dL Est Cr Clr Drug Dosing 40.82 mL/min Estimated GFR (MDRD) 56 L (>60) Glucose 101 (74-106) mg/dL Calcium 7.9 L (8.5-10.1) mg/dL Magnesium (1.8-2.4) mg/dL Urine Color Yellow Urine Appearance Slightly cloudy Urine pH 6.5 (4.5-8.0) Ur Specific [place] 1.010 (1.008-1.030) Urine Protein Negative (NEGATIVE) mg/dL Urine Glucose (UA) Normal (NEGATIVE) mg/dL Urine Ketones Negative (NEGATIVE) mg/dL Urine Occult Blood Negative (NEGATIVE) Urine Nitrite Negative (NEGATIVE) Urine Bilirubin Negative (NEGATIVE) Urine Urobilinogen Normal (NORMAL) mg/dL Ur Leukocyte Esterase Negative (NEGATIVE) Urine RBC Not seen (0-5) Urine WBC 0-5 (0-5) Ur Epithelial Cells Moderate Amorphous Sediment Not seen Urine Bacteria Moderate Urine Mucus Few Urine Other 04/22/16 Range/Units 06:24 WBC (4.5-11.0) K/uL RBC (3.30-5.50) M/uL Hgb (12.0-15.0) g/dL Hct (36.0-48.0) % MCV (80-98) fL MCH (27-31) pg MCHC (32-36) % Plt Count (150-400) K/uL Neut % (Auto) (36-66) % Lymph % (Auto) (24-44) % [facility] % (Auto) (2-6) % Eos % (Auto) (2-4) % Baso % (Auto) (0-1) % Sodium (140-148) mmol/L Potassium (3.6-5.2) mmol/L Chloride (100-108) mmol/L Carbon Dioxide (21-32) mmol/L Anion Gap (5.0-14.0) mmol/L BUN (7-18) mg/dL Creatinine (0.6-1.0) mg/dL Est Cr Clr Drug Dosing mL/min Estimated GFR (MDRD) (>60) Glucose (74-106) mg/dL Calcium (8.5-10.1) mg/dL Magnesium 2.2 D (1.8-2.4) mg/dL Urine Color Urine Appearance Urine pH (4.5-8.0) Ur Specific [place] (1.008-1.030) Urine Protein (NEGATIVE) mg/dL Urine Glucose (UA) (NEGATIVE) mg/dL Urine Ketones (NEGATIVE) mg/dL Urine Occult Blood (NEGATIVE) Urine Nitrite (NEGATIVE) Urine Bilirubin (NEGATIVE) Urine Urobilinogen (NORMAL) mg/dL Ur Leukocyte Esterase (NEGATIVE) Urine RBC (0-5) Urine WBC (0-5) Ur Epithelial Cells Amorphous Sediment Urine Bacteria Urine Mucus Urine Other Med Orders - Current: Current Medications Albuterol (Proventil Neb Soln) 2.5 mg NEB Q4H PRN PRN Reason: Shortness Of Breath/wheezing Albuterol/Ipratropium (Duoneb 3.0-0.5 Mg/3 Ml) 3 ml NEB QID PRN PRN Reason: Shortness Of Breath/wheezing Bisacodyl (Dulcolax) 5 mg PO DAILY PRN PRN Reason: Constipation Docusate Sodium (Colace) 100 mg PO BID PRN PRN Reason: Constipation Hydromorphone HCl (Dilaudid) 1 mg IVPUSH Q2H PRN PRN Reason: Pain Lorazepam (Ativan) 1 mg IV Q6H PRN PRN Reason: Nausea/Vomiting Lorazepam (Ativan) 0.5 mg PO TID PRN PRN Reason: anxiety Last Admin: 04/22/16 09:45 Dose: 0.5 mg Methocarbamol (Robaxin) 500 mg PO BID PRN PRN Reason: Pain Last Admin: 04/22/16 09:44 Dose: 500 mg Methocarbamol (Robaxin) 1,000 mg PO BEDTIME CARIE Mometasone Furoate/Formoterol Fumar (Dulera 200-5 Mcg) 0 puff IH BIDRT [facility] Last Admin: 04/22/16 08:52 Dose: 2 puff Ondansetron HCl (Zofran Odt) 4 mg PO Q6H PRN PRN Reason: Nausea able to take PO Oxycodone/Acetaminophen (Percocet 325-5 Mg) 0 tab PO Q4H PRN PRN Reason: Pain Last Admin: 04/22/16 00:35 Dose: 1 tab Pantoprazole Sodium (Protonix Iv) 40 mg IVPUSH BEDTIME [facility] Potassium Chloride (Klor-Con M20) 40 meq PO ONETIME ONE Stop: 04/22/16 13:57 Sodium Chloride (Saline Flush) 10 ml FLUSH ASDIRECTED PRN PRN Reason: Keep Vein Open Thiamine HCl (Vitamin B-1) 100 mg PO DAILY [facility] Last Admin: 04/22/16 09:31 Dose: 100 mg Zolpidem Tartrate (Ambien) 5 mg PO BEDTIME PRN PRN Reason: Sleep Last Admin: 04/22/16 00:35 Dose: 5 mg Discontinued Medications Bumetanide (Bumex) 4 mg IVPUSH ONETIME ONE Stop: 04/21/16 20:53 Last Admin: 04/21/16 21:03 Dose: 4 mg Potassium Chloride 40 meq/ (Premix) 100 mls @ 25 mls/hr IV ONETIME ONE Stop: 04/21/16 23:45 Last Admin: 04/21/16 20:26 Dose: 25 mls/hr Sodium Chloride (Normal Saline) 1,000 mls @ 75 mls/hr IV ASDIRECTED [facility] Last Admin: 04/21/16 20:29 Dose: 75 mls/hr Magnesium Sulfate 2 gm/ Premix 50 mls @ 12.5 mls/hr IV ONETIME ONE Stop: 04/22/16 02:23 Last Admin: 04/22/16 00:33 Dose: 12.5 mls/hr Potassium Chloride 20 meq/Lidocaine HCl 2 ml/ Sodium Chloride 112 mls @ 56 mls/ hr IV Q2H [facility] Stop: 04/22/16 12:29 Last Admin: 04/22/16 11:33 Dose: 56 mls/hr Lidocaine HCl (Xylocaine-Mpf 1%) Confirm Administered Dose 5 ml .ROUTE .STK-MED ONE Stop: 04/21/16 20:16 Last Admin: 04/21/16 20:31 Dose: Not Given Mometasone Furoate/Formoterol Fumar (Dulera 200-5 Mcg) 0 puff IH BIDRT [facility] Last Admin: 04/22/16 09:44 Dose: Not Given Potassium Chloride (Klor-Con M20) 40 meq PO ONETIME ONE Stop: 04/21/16 22:25 Last Admin: 04/22/16 00:32 Dose: 40 meq Potassium Chloride (Klor-Con M20) 40 meq PO ONETIME ONE Stop: 04/22/16 08:01 Last Admin: 04/22/16 09:30 Dose: 40 meq - Exam Quality Assessment: supplemental oxygen, DVT prophylaxis General: alert, oriented, cooperative, mild distress Lungs: Decreased breath sounds, Wheezing. No: Crackles, Rales, Rhonchi, Rub, Stridor Cardiovascular: regular rate, regular rhythm, no murmurs Abdomen: bowel sounds present, soft, no tenderness, no distension Extremities: no edema Skin: warm, dry, intact - Problem List Review Problem List Initiated/Reviewed/Updated: Yes - My Orders Last 24 Hours: My Active Orders 04/22/16 07:41 Consult to Physical Therapy [PT Evaluation and Treatment] [CONS] Routine 04/22/16 13:56 Potassium Chloride [Klor-Con M20] 40 meq PO ONETIME ONE 04/22/16 17:00 POTASSIUM,K [CHEM] Stat 04/23/16 05:00 BASIC METABOLIC PANEL,BMP [CHEM] Timed CBC WITH AUTO DIFF [HEME] Timed MAGNESIUM [CHEM] Timed - Plan Plan:: ASSESSMENT / PLAN COPD EXACERBATION WITH UNDERLYING TRACHEOMALACIA-increased shortness of breath with activity as well as progressive weakness -Supplemental oxygen as needed -Nebulizer therapy as needed -continue home medication -blood cultures pending -ok to sleep in recliner, patient reports has not slept in a bed in 3 years. Hypokalemia-potassium level has improved with replacement but still remains low -IV and oral potassium replacement -Recheck potassium later today and again in the a.m. Peripheral Edema-edema has improved following IV Bumex given last night -monitor for recurrent edema frequent falls as home -PT and OT evaluation -high risk for falls. -May require longterm placement at the time of discharge Maintenance issues -Nutrition: 2 g sodium diet -Abdul catheter not indicated at this time -DVT prophylaxis: SCD -GI Prophylaxis; Protonix 40mg daily -Tape allergy; avoid all tape and adhesive except for tegaderm and colban CODE STATUS: Full Admission status: Admit to [address] [place] [address] Admission justification. This patient will be admitted for inpatient services and is medically appropriate meeting medical necessity for inpatient admission as outlined in my documentation. I reasonably expect the patient will require inpatient services that span. Time over 2 midnights. I reasonably expect this patient to be discharged or transferred within 96 hours after admission to the [facility]. Disposition;discharge to home versus longterm placement for restorative physical therapy and occupational therapy Primary care provider: Dr. Tam
[2016-04-22] MEDS: Venlafaxine 37.5 MG Cap.ER PO SCH (16:09)
[2016-04-22] MEDS: Acetaminophen/Caffeine 500-65 MG Tab PO PRN (18:32)
[2016-04-22] MEDS ORDERED: Gabapentin 300 MG Cap PO PRN (21:00)
[2016-04-22] MEDS ORDERED: Gabapentin 300 MG Cap PO ONE (21:59)
[2016-04-22] MEDS: Pantoprazole 40 MG Vial IVPUSH SCH (22:15)
[2016-04-22] MEDS: Methocarbamol 500 MG Tab PO SCH (22:15)
--- NOTE | 2016-04-22 22:24 | PCM.SN ---
- Free Text/Narrative Note: time 2104; from [address] [place] [address] patient requests Neurontin four tabs which is her usual dose. a; shoulder and chronic pain p; ordered Neurontin 300 mg tablet, give four tabs now. Will reassess in the a.m.
[2016-04-23] MEDS: Formoterol/Mometasone 200-5 MCG 8.8 GM Inhaler IH SCH ×2 (07:46→21:39)
[2016-04-23] MEDS: Acetaminophen/oxyCODONE 325-5 MG Tab PO PRN ×3 (08:01→21:42)
[2016-04-23] MEDS: Thiamine 100 MG Tab PO SCH (08:03)
[2016-04-23] MEDS: Venlafaxine 37.5 MG Cap.ER PO SCH (08:04)
--- NOTE | 2016-04-23 16:06 | PCM.PN ---
- General Info Date of Service: 04/23/16 - Review of Systems General: Reports: weakness. Denies: fever, chills Pulmonary: Reports: shortness of breath. Denies: pleuritic chest pain, cough, sputum, hemoptysis, wheezing Cardiovascular: Reports: dyspnea on exertion. Denies: chest pain, palpitations , orthopnea, PND, edema, lightheadedness Gastrointestinal: Reports: No symptoms Systems Review Comment:: Ms. Florez has been stable over the past 24 hours, potassium level remains good and she's had no recurrence of her peripheral edema. Vital signs have been stable and she has remained afebrile. Continues to experience symptoms of dyspnea with exertion. - Patient Data Vitals - most recent: Last Vital Signs Temp 96.5 F 04/23/16 11:07 Pulse 97 04/23/16 11:07 Resp 17 04/23/16 11:07 BP 105/65 04/23/16 11:07 Pulse Ox 96 04/23/16 11:07 Weight - most recent: 155 lb 0.006 oz I&O - last 24 hours: Intake & Output 04/23/16 04/23/16 04/23/16 06:59 14:59 22:59 Intake Total 360 520 Output Total 300 400 Balance 60 520 -400 Lab Results last 24 hrs: Laboratory Results - last 24 hr 04/22/16 04/23/16 04/23/16 Range/Units 17:06 05:00 05:00 WBC 9.0 (4.5-11.0) K/uL RBC 3.10 L (3.30-5.50) M/uL Hgb 9.2 L (12.0-15.0) g/dL Hct 28.7 L (36.0-48.0) % MCV 93 (80-98) fL MCH 30 (27-31) pg MCHC 32 (32-36) % Plt Count 326 (150-400) K/uL Neut % (Auto) 64 (36-66) % Lymph % (Auto) 24 (24-44) % [place] % (Auto) 8 H (2-6) % Eos % (Auto) 3 (2-4) % Baso % (Auto) 0 (0-1) % Sodium (140-148) mmol/L Potassium 4.5 (3.6-5.2) mmol/L Chloride (100-108) mmol/L Carbon Dioxide (21-32) mmol/L Anion Gap (5.0-14.0) mmol/L BUN (7-18) mg/dL Creatinine (0.6-1.0) mg/dL Est Cr Clr Drug Dosing mL/min Estimated GFR (MDRD) (>60) Glucose (74-106) mg/dL Lactic Acid 1.5 (0.4-2.0) mmol/L Calcium (8.5-10.1) mg/dL Magnesium (1.8-2.4) mg/dL 04/23/16 Range/Units 05:00 WBC (4.5-11.0) K/uL RBC (3.30-5.50) M/uL Hgb (12.0-15.0) g/dL Hct (36.0-48.0) % MCV (80-98) fL MCH (27-31) pg MCHC (32-36) % Plt Count (150-400) K/uL Neut % (Auto) (36-66) % Lymph % (Auto) (24-44) % [place] % (Auto) (2-6) % Eos % (Auto) (2-4) % Baso % (Auto) (0-1) % Sodium 142 (140-148) mmol/L Potassium 4.7 (3.6-5.2) mmol/L Chloride 108 (100-108) mmol/L Carbon Dioxide 29 (21-32) mmol/L Anion Gap 5.4 (5.0-14.0) mmol/L BUN 13 (7-18) mg/dL Creatinine 0.9 (0.6-1.0) mg/dL Est Cr Clr Drug Dosing 45.36 mL/min Estimated GFR (MDRD) > 60 (>60) Glucose 82 (74-106) mg/dL Lactic Acid (0.4-2.0) mmol/L Calcium 7.6 L (8.5-10.1) mg/dL Magnesium 1.9 (1.8-2.4) mg/dL Med Orders - Current: Current Medications Acetaminophen/Caffeine (Excedrin Tension Headache) 1 - 2 tab PO Q6HR PRN PRN Reason: Headache Last Admin: 04/22/16 18:32 Dose: 2 tab Albuterol (Proventil Neb Soln) 2.5 mg NEB Q4H PRN PRN Reason: Shortness Of Breath/wheezing Albuterol/Ipratropium (Duoneb 3.0-0.5 Mg/3 Ml) 3 ml NEB QID PRN PRN Reason: Shortness Of Breath/wheezing Bisacodyl (Dulcolax) 5 mg PO DAILY PRN PRN Reason: Constipation Docusate Sodium (Colace) 100 mg PO BID PRN PRN Reason: Constipation Estrogens Conjugated (Premarin) 1.25 mg PO DAILY [facility] Last Admin: 04/23/16 08:03 Dose: 1.25 mg Furosemide (Lasix) 20 mg PO DAILY [facility] Hydromorphone HCl (Dilaudid) 1 mg IVPUSH Q2H PRN PRN Reason: Pain Lorazepam (Ativan) 1 mg IV Q6H PRN PRN Reason: Nausea/Vomiting Lorazepam (Ativan) 0.5 mg PO TID PRN PRN Reason: anxiety Last Admin: 04/22/16 23:04 Dose: 0.5 mg Methocarbamol (Robaxin) 500 mg PO BID PRN PRN Reason: Pain Last Admin: 04/22/16 16:10 Dose: 500 mg Methocarbamol (Robaxin) 1,000 mg PO BEDTIME [facility] Last Admin: 04/22/16 22:15 Dose: 1,000 mg Mometasone Furoate/Formoterol Fumar (Dulera 200-5 Mcg) 0 puff IH BIDRT [facility] Last Admin: 04/23/16 07:46 Dose: 2 puff Ondansetron HCl (Zofran Odt) 4 mg PO Q6H PRN PRN Reason: Nausea able to take PO Oxycodone/Acetaminophen (Percocet 325-5 Mg) 0 tab PO Q4H PRN PRN Reason: Pain Last Admin: 04/23/16 13:10 Dose: 1 tab Pantoprazole Sodium (Protonix Iv) 40 mg IVPUSH BEDTIME [facility] Last Admin: 04/22/16 22:15 Dose: 40 mg Sodium Chloride (Saline Flush) 10 ml FLUSH ASDIRECTED PRN PRN Reason: Keep Vein Open Thiamine HCl (Vitamin B-1) 100 mg PO DAILY [facility] Last Admin: 04/23/16 08:03 Dose: 100 mg Venlafaxine HCl (Effexor Xr) 37.5 mg PO DAILY [facility] Last Admin: 04/23/16 08:04 Dose: 37.5 mg Zolpidem Tartrate (Ambien) 5 mg PO BEDTIME PRN PRN Reason: Sleep Last Admin: 04/22/16 22:15 Dose: 5 mg Discontinued Medications Bumetanide (Bumex) 4 mg IVPUSH ONETIME ONE Stop: 04/21/16 20:53 Last Admin: 04/21/16 21:03 Dose: 4 mg Gabapentin (Neurontin) 1,200 mg PO TID PRN PRN Reason: Pain Gabapentin (Neurontin) 1,200 mg PO ONETIME ONE Stop: 04/22/16 22:00 Last Admin: 04/22/16 22:13 Dose: 1,200 mg Potassium Chloride 40 meq/ (Premix) 100 mls @ 25 mls/hr IV ONETIME ONE Stop: 04/21/16 23:45 Last Admin: 04/21/16 20:26 Dose: 25 mls/hr Sodium Chloride (Normal Saline) 1,000 mls @ 75 mls/hr IV ASDIRECTED [facility] Last Admin: 04/21/16 20:29 Dose: 75 mls/hr Magnesium Sulfate 2 gm/ Premix 50 mls @ 12.5 mls/hr IV ONETIME ONE Stop: 04/22/16 02:23 Last Admin: 04/22/16 00:33 Dose: 12.5 mls/hr Potassium Chloride 20 meq/Lidocaine HCl 2 ml/ Sodium Chloride 112 mls @ 56 mls/ hr IV Q2H [facility] Stop: 04/22/16 12:29 Last Admin: 04/22/16 11:33 Dose: 56 mls/hr Lidocaine HCl (Xylocaine-Mpf 1%) Confirm Administered Dose 5 ml .ROUTE .STK-MED ONE Stop: 04/21/16 20:16 Last Admin: 04/21/16 20:31 Dose: Not Given Mometasone Furoate/Formoterol Fumar (Dulera 200-5 Mcg) 0 puff IH BIDRT [facility] Last Admin: 04/22/16 09:44 Dose: Not Given Potassium Chloride (Klor-Con M20) 40 meq PO ONETIME ONE Stop: 04/21/16 22:25 Last Admin: 04/22/16 00:32 Dose: 40 meq Potassium Chloride (Klor-Con M20) 40 meq PO ONETIME ONE Stop: 04/22/16 08:01 Last Admin: 04/22/16 09:30 Dose: 40 meq Potassium Chloride (Klor-Con M20) 40 meq PO ONETIME ONE Stop: 04/22/16 14:31 Last Admin: 04/22/16 16:08 Dose: 40 meq - Exam Quality Assessment: DVT prophylaxis Lungs: Clear to auscultation, Normal respiratory effort, Decreased breath sounds. No: Crackles, Rales, Rhonchi, Rub, Stridor, Wheezing Cardiovascular: regular rhythm, no murmurs, tachycardia. No: irregular rhythm, bradycardia Abdomen: bowel sounds present, soft, no tenderness, no distension Extremities: no edema Skin: warm, dry, intact - Problem List Review Problem List Initiated/Reviewed/Updated: Yes - My Orders Last 24 Hours: My Active Orders 04/22/16 15:30 Estrogens, Conjugated [Premarin] 1.25 mg PO DAILY Venlafaxine [Effexor XR] 37.5 mg PO DAILY 04/22/16 18:08 Acetaminophen/Caffeine [Excedrin Tension Headache] 1 - 2 tab PO Q6HR PRN 04/22/16 Dinner 2 Gram Sodium Diet [DIET] 04/24/16 09:00 Furosemide [Lasix] 20 mg PO DAILY - Plan Plan:: ASSESSMENT / PLAN COPD EXACERBATION WITH UNDERLYING TRACHEOMALACIA-increased shortness of breath with activity as well as progressive weakness -Supplemental oxygen as needed -Nebulizer therapy as needed -continue home medication -blood cultures pending -ok to sleep in recliner, patient reports has not slept in a bed in 3 years. Hypokalemia-resolved, potassium level this morning within normal range Peripheral edema-resolved following use of IV diuretics, likely secondary to a component of cor pulmonale given her underlying pulmonary disease -Daily Lasix while hospitalized -When necessary daily Lasix after discharge frequent falls as home -PT and OT evaluation -high risk for falls. -May require correction placement at the time of discharge Maintenance issues -Nutrition: 2 g sodium diet -Abdul catheter not indicated at this time -DVT prophylaxis: SCD -GI Prophylaxis; Protonix 40mg daily -Tape allergy; avoid all tape and adhesive except for tegaderm and colban CODE STATUS: Full Admission status: Admit to [address] [place] [address] justification. This patient will be admitted for inpatient services and is medically appropriate meeting medical necessity for inpatient admission as outlined in my documentation. I reasonably expect the patient will require inpatient services that span. Time over 2 midnights. I reasonably expect this patient to be discharged or transferred within 96 hours after admission to the [facility]. Disposition;discharge to home versus correction placement for restorative physical therapy and occupational therapy Primary care provider: Dr. Tam
[2016-04-23] MEDS: Acetaminophen/Caffeine 500-65 MG Tab PO PRN (17:28)
[2016-04-23] MEDS: Loperamide 2 MG Cap PO PRN (20:34)
[2016-04-23] MEDS: Methocarbamol 500 MG Tab PO SCH (21:40)
[2016-04-23] MEDS: Pantoprazole 40 MG Vial IVPUSH SCH (21:40)
[2016-04-23] MEDS: Zolpidem 5 MG Tab PO PRN (21:41)
[2016-04-23] MEDS: LORazepam 0.5 MG Tab PO PRN (21:41)
[2016-04-24] MEDS: LORazepam 0.5 MG Tab PO PRN (03:58)
[2016-04-24] MEDS: Acetaminophen/oxyCODONE 325-5 MG Tab PO PRN ×2 (03:58→08:55)
[2016-04-24] MEDS: Formoterol/Mometasone 200-5 MCG 8.8 GM Inhaler IH SCH (07:47)
[2016-04-24 08:04] VITALS: BP 142/77
[2016-04-24] MEDS: Venlafaxine 37.5 MG Cap.ER PO SCH (08:48)
[2016-04-24] MEDS: Thiamine 100 MG Tab PO SCH (08:48)
[2016-04-24] MEDS ORDERED: Furosemide 20 MG Tab PO SCH (09:00)
--- NOTE | 2016-04-24 10:24 | PCM.DCSUM1 ---
Discharge Summary - Hospital Course Brief History: This patient is a 65-year-old woman who is admitted through the emergency department with increased weakness and recent falls at home, hypokalemia, and increased dyspnea secondary to COPD exacerbation. - Discharge Data Discharge Date: 04/24/16 Discharge Disposition: Home, W Home Health Agency 06 Condition: Fair - Discharge Diagnosis/Problem(s) (1) Edema SNOMED Code(s): 670454419, 390564903 ICD Code: R60.9 - EDEMA, UNSPECIFIED Status: Acute Current Visit: Yes (2) Hypokalemia SNOMED Code(s): 96087742 ICD Code: E87.6 - HYPOKALEMIA Status: Acute Priority: High Current Visit: Yes (3) Tracheomalacia SNOMED Code(s): 28191679 ICD Code: J39.8 - OTHER SPECIFIED DISEASES OF UPPER RESPIRATORY TRACT Status: Acute Current Visit: No (4) Frequent falls SNOMED Code(s): 295231339 ICD Code: R29.6 - REPEATED FALLS Status: Acute Priority: High Current Visit: Yes (5) Chronic obstructive lung disease SNOMED Code(s): 89952704 ICD Code: J44.9 - CHRONIC OBSTRUCTIVE PULMONARY DISEASE, UNSPECIFIED Status : Chronic Priority: High Current Visit: Yes Qualifiers: COPD type: chronic bronchitis Chronic bronchitis type: mixed simple and mucopurulent Qualified Code(s): J41.8 - Mixed simple and mucopurulent chronic bronchitis - Patient Summary/Data Consults: Consultations 04/22/16 06:20 OT Evaluation and Treatment [CONS] Routine Please Evaluate and Treat. OT Reason for Consult: Discharge Planning This query below is only for informational purposes and is not editable. Admission Diagnosis/Problem: Hypokalemia 04/22/16 07:41 Consult to Physical Therapy [PT Evaluation and Treatment] [CONS] Routine Please Evaluate and Treat. PT Reason for Consult: Other (Type Response) Special Instructions: frequent falls at home This query below is only for informational purposes and is not editable. Admission Diagnosis/Problem: Hypokalemia Hospital Course: This patient is a 65-year-old woman with known COPD and tracheomalacia. Over a period of 4 days prior to admission she developed progressive weakness with increased shortness of breath. During this period time had several falls at home resulting in marked ecchymosis of her upper extremities and chest. On evaluation emergency room was found to have significant hypokalemia and was started on IV potassium replacement. She also had some ongoing difficulty with increase in peripheral edema that was unresponsive to her home diuretic therapy. On admission she was given IV diuretics and by the following morning her peripheral edema had significantly improved. With IV and oral potassium replacement her potassium level normalized and remained within normal range through the rest of her hospital stay. She was given supplemental oxygen in addition to nebulizer therapy and IV steroids, by the time of discharge her respiratory status was back to baseline. She will be discharged home on her usual diuretic therapy and she's instructed to weigh herself daily and notify her provider if her weight increases more than 3-45 pounds over a few days. She 's also instructed to follow a strict low-sodium diet and his diet was reviewed with her prior to discharge. She will be discharged home on oral potassium supplement 20 once twice daily followup appointment has already been scheduled for her with Dr. Esquivel tomorrow. Activity will be as tolerated and she will be on a 2 g sodium diet. Given her progressive respiratory symptoms and recommended that she discuss with Dr. Esquivel the possibility of a followup appointment at [place] to reassess her Tracheomalacia and obstruction. - Patient Instructions Diet: Low Sodium Activity: As Tolerated Other/Special Instructions: Patient already has followup appointment with Dr. Tam tomorrow. - Discharge Plan Prescriptions/Med Rec: Potassium Chloride [Klor-Con M20] 20 meq PO BID #60 [email or web address] Home Medications: Home Meds Estrogens, Conjugated [Premarin] 1.25 mg PO DAILY 05/16/13 [History] Calcium Carbonate/Vitamin D3 [Calcium 600 + Vit D Tablet] 4 tab PO DAILY [History] Cholecalciferol (Vitamin D3) [Vitamin D3] 1 tab PO DAILY 04/27/14 [History] Fluocinonide [Lidex 0.05% Gel] 1 applic TOP ASDIRECTED PRN 04/27/14 [History] LORazepam 0.5 mg PO TID PRN 04/27/14 [History] Thiamine HCl 1 tab PO DAILY 04/27/14 [History] Vitamin B Complex [Balanced B-100] 1 tab PO DAILY 04/27/14 [History] Albuterol Sulfate [Proair Hfa] 2 puff INH Q4H PRN 07/14/14 [History] Bumetanide [Bumex] 2 mg PO BID 07/14/14 [History] Nabumetone [Relafen] 1 tab PO BID 07/14/14 [History] Acetaminophen/Caffeine [Excedrin Tension Headache] 3 tab PO Q6HR 04/06/15 [ History] Budesonide/Formoterol [Symbicort 160-4.5 MCG] 2 puff INH BID 04/06/15 [History] Methocarbamol [Robaxin] 1,000 mg PO BEDTIME 04/09/16 [History] Methocarbamol [Robaxin] 500 mg PO BID PRN 04/09/16 [History] Levalbuterol HCl [Xopenex] 1.25 mg NEB BIDRT #120 neb 04/12/16 [Rx] Gabapentin 4 tab PO BEDTIME PRN 04/21/16 [History] Levalbuterol HCl [Levalbuterol Concentrate] 1 ampule INH BID 04/21/16 [History] Prednisone [IMW: predniSONE] 20 mg PO DAILY 04/21/16 [History] Venlafaxine [Effexor] 37.5 mg PO DAILY 04/22/16 [History] Potassium Chloride [Klor-Con M20] 20 meq PO BID #60 [email or web address] 04/24/16 [Rx] Referrals: Cortez Tam MD [Primary Care Provider] - - Patient Data Vitals - Most Recent: Last Vital Signs Temp 96.5 F 04/24/16 08:02 Pulse 82 04/24/16 08:02 Resp 16 04/24/16 08:02 BP 142/77 H 04/24/16 08:02 Pulse Ox 97 04/24/16 08:02 Weight - Most Recent: 155 lb 0.006 oz I&O - Last 24 hours: Intake & Output 04/23/16 04/24/16 04/24/16 22:59 06:59 14:59 Output Total 900 400 Balance -900 -400 Med Orders - Current: Current Medications Acetaminophen/Caffeine (Excedrin Tension Headache) 1 - 2 tab PO Q6HR PRN PRN Reason: Headache Last Admin: 04/23/16 17:28 Dose: 2 tab Albuterol (Proventil Neb Soln) 2.5 mg NEB Q4H PRN PRN Reason: Shortness Of Breath/wheezing Albuterol/Ipratropium (Duoneb 3.0-0.5 Mg/3 Ml) 3 ml NEB QID PRN PRN Reason: Shortness Of Breath/wheezing Bisacodyl (Dulcolax) 5 mg PO DAILY PRN PRN Reason: Constipation Docusate Sodium (Colace) 100 mg PO BID PRN PRN Reason: Constipation Estrogens Conjugated (Premarin) 1.25 mg PO DAILY [facility] Last Admin: 04/24/16 08:48 Dose: 1.25 mg Furosemide (Lasix) 20 mg PO DAILY [facility] Last Admin: 04/24/16 08:48 Dose: 20 mg Hydromorphone HCl (Dilaudid) 1 mg IVPUSH Q2H PRN PRN Reason: Pain Loperamide HCl (Imodium) 2 mg PO Q4H PRN PRN Reason: Diarrhea Last Admin: 04/23/16 20:34 Dose: 2 mg Lorazepam (Ativan) 1 mg IV Q6H PRN PRN Reason: Nausea/Vomiting Lorazepam (Ativan) 0.5 mg PO TID PRN PRN Reason: anxiety Last Admin: 04/24/16 03:58 Dose: 0.5 mg Methocarbamol (Robaxin) 500 mg PO BID PRN PRN Reason: Pain Last Admin: 04/22/16 16:10 Dose: 500 mg Methocarbamol (Robaxin) 1,000 mg PO BEDTIME [facility] Last Admin: 04/23/16 21:40 Dose: 1,000 mg Mometasone Furoate/Formoterol Fumar (Dulera 200-5 Mcg) 0 puff IH BIDRT [facility] Last Admin: 04/24/16 07:47 Dose: 2 puff Ondansetron HCl (Zofran Odt) 4 mg PO Q6H PRN PRN Reason: Nausea able to take PO Oxycodone/Acetaminophen (Percocet 325-5 Mg) 0 tab PO Q4H PRN PRN Reason: Pain Last Admin: 04/24/16 08:55 Dose: 2 tab Pantoprazole Sodium (Protonix Iv) 40 mg IVPUSH BEDTIME [facility] Last Admin: 04/23/16 21:40 Dose: 40 mg Sodium Chloride (Saline Flush) 10 ml FLUSH ASDIRECTED PRN PRN Reason: Keep Vein Open Thiamine HCl (Vitamin B-1) 100 mg PO DAILY [facility] Last Admin: 04/24/16 08:48 Dose: 100 mg Venlafaxine HCl (Effexor Xr) 37.5 mg PO DAILY [facility] Last Admin: 04/24/16 08:48 Dose: 37.5 mg Zolpidem Tartrate (Ambien) 5 mg PO BEDTIME PRN PRN Reason: Sleep Last Admin: 04/23/16 21:41 Dose: 5 mg Discontinued Medications Bumetanide (Bumex) 4 mg IVPUSH ONETIME ONE Stop: 04/21/16 20:53 Last Admin: 04/21/16 21:03 Dose: 4 mg Gabapentin (Neurontin) 1,200 mg PO TID PRN PRN Reason: Pain Gabapentin (Neurontin) 1,200 mg PO ONETIME ONE Stop: 04/22/16 22:00 Last Admin: 04/22/16 22:13 Dose: 1,200 mg Potassium Chloride 40 meq/ (Premix) 100 mls @ 25 mls/hr IV ONETIME ONE Stop: 04/21/16 23:45 Last Admin: 04/21/16 20:26 Dose: 25 mls/hr Sodium Chloride (Normal Saline) 1,000 mls @ 75 mls/hr IV ASDIRECTED [facility] Last Admin: 04/21/16 20:29 Dose: 75 mls/hr Magnesium Sulfate 2 gm/ Premix 50 mls @ 12.5 mls/hr IV ONETIME ONE Stop: 04/22/16 02:23 Last Admin: 04/22/16 00:33 Dose: 12.5 mls/hr Potassium Chloride 20 meq/Lidocaine HCl 2 ml/ Sodium Chloride 112 mls @ 56 mls/ hr IV Q2H [facility] Stop: 04/22/16 12:29 Last Admin: 04/22/16 11:33 Dose: 56 mls/hr Lidocaine HCl (Xylocaine-Mpf 1%) Confirm Administered Dose 5 ml .ROUTE .STK-MED ONE Stop: 04/21/16 20:16 Last Admin: 04/21/16 20:31 Dose: Not Given Mometasone Furoate/Formoterol Fumar (Dulera 200-5 Mcg) 0 puff IH BIDRT [facility] Last Admin: 04/22/16 09:44 Dose: Not Given Potassium Chloride (Klor-Con M20) 40 meq PO ONETIME ONE Stop: 04/21/16 22:25 Last Admin: 04/22/16 00:32 Dose: 40 meq Potassium Chloride (Klor-Con M20) 40 meq PO ONETIME ONE Stop: 04/22/16 08:01 Last Admin: 04/22/16 09:30 Dose: 40 meq Potassium Chloride (Klor-Con M20) 40 meq PO ONETIME ONE Stop: 04/22/16 14:31 Last Admin: 04/22/16 16:08 Dose: 40 meq *Q Meaningful Use (DIS) - VTE *Q VTE Criteria *Q: - Stroke *Q Stroke Criteria *Q: - AMI *Q AMI Criteria *Q:
[2016-04-24] MEDS: Loperamide 2 MG Cap PO PRN (11:15)
== END 2016-04-24 12:00 | disposition home health service (06) | DRG 140 ==
LOC: JP.ED 17:37 → JP.MS 20:58
PROVIDERS: ADMIT Hospitalist; ATTEND Hospitalist
DX: J44.1 Chronic obstructive pulmonary disease with (acute) exacerbation (principal); J39.8 Other specified diseases of upper respiratory tract; I50.9 Heart failure, unspecified; E87.6 Hypokalemia; R60.9 Edema, unspecified; R29.6 Repeated falls; Z79.52 Long term (current) use of systemic steroids; F32.9 Major depressive disorder, single episode, unspecified; G47.33 Obstructive sleep apnea (adult) (pediatric); M25.519 Pain in unspecified shoulder; G89.29 Other chronic pain
CPT/HCPCS: 36415; 71020; 71020-26; 80048; 80053; 81001; 82150; 83605; 83690; 83735; 83880; 84132; 85025; 85610; 87040; 94640-76; 94664; 96361; 96374; 97162-GP; 97165-GO; 97530-GP; 99285-25; A9270-GY; C9113; J3475; J3480; J7030; J7040; S0171

== ENCOUNTER 2017-07-26 21:37 | Emergency (ER) | payer MEDICARE, MEDICAID ==
[2017-07-26 22:28] VITALS: BP 184/86
--- NOTE | 2017-07-26 23:46 | EDM.PDOC ---
ED HPI GENERAL MEDICAL PROBLEM - General Chief Complaint: Respiratory Problem Stated Complaint: BRONCHITIS, DIARRHEA Time Seen by Provider: 07/26/17 23:25 Source of Information: Reports: Patient, Family History Limitations: Reports: No Limitations - History of Present Illness INITIAL COMMENTS - FREE TEXT/NARRATIVE: Oxana presents today with complaints of watery diarrhea today x 4 to 6 stools. She also complaints of cough with mucus production since Friday. She states she has been taking augmenting twice per day since Friday. - Related Data Allergies Allergy/AdvReac Type Severity Reaction Status Date / Time azithromycin Allergy Severe Difficulty Verified 07/26/17 22:26 Breathing metronidazole [From Flagyl] Allergy Intermediate Rash Verified 07/26/17 22:26 Metronidazole HCl Allergy Intermediate Rash Verified 07/26/17 22:26 [From Flagyl] sulfamethoxazole Allergy Intermediate Rash Verified 07/26/17 22:26 [From Septra] trimethoprim [From Octra] Allergy Intermediate Rash Verified 07/26/17 22:26 nickel Allergy Rash Verified 07/26/17 22:26 midazolam [From Versed] AdvReac Vomiting Verified 07/26/17 22:26 morphine AdvReac Confusion Verified 07/26/17 22:26 tape Allergy Rash Uncoded 07/26/17 22:26 Home Meds: Home Meds Calcium Carbonate/Vitamin D3 [Calcium 600 + Vit D Tablet] 4 tab PO DAILY [History] Cholecalciferol (Vitamin D3) [Vitamin D3] 1 tab PO DAILY 04/27/14 [History] Fluocinonide [Lidex 0.05% Gel] 1 applic TOP ASDIRECTED PRN 04/27/14 [History] LORazepam 0.5 mg PO TID PRN 04/27/14 [History] Vitamin B Complex [Balanced B-100] 1 tab PO DAILY 04/27/14 [History] Acetaminophen/Caffeine [Excedrin Tension Headache] 3 tab PO Q6HR PRN 04/06/15 [ History] Methocarbamol [Robaxin] 500 mg PO BID PRN 04/09/16 [History] Gabapentin 1 tab PO BID PRN 04/21/16 [History] Prednisone [IMW: predniSONE] 20 mg PO DAILY 04/21/16 [History] Amoxicillin 1 tab PO TID 07/26/17 [History] Amoxicillin/Clavulanate K [Augmentin 500-125 MG] 1 tab PO TID 07/26/17 [History] Cefuroxime Axetil [Ceftin] 1 tab PO BID 07/26/17 [History] Cyanocobalamin (Vitamin B12) [Vitamin B12] 1,000 mcg PO DAILY 07/26/17 [History] Doxycycline [Vibramycin] 1 tab PO BID 07/26/17 [History] Estradiol [Estrace] 1 tab PO DAILY 07/26/17 [History] Gabapentin [Neurontin] 1 tab PO BID 07/26/17 [History] Loperamide [Imodium] 2 mg PO Q4H 07/26/17 [History] Melatonin 1 tab PO BEDTIME 07/26/17 [History] Ondansetron [Zofran ODT] 1 tab BUCCAL Q4H PRN 07/26/17 [History] PARoxetine HCl [Paroxetine HCl] 0.5 tab PO BID 07/26/17 [History] Spironolactone [Aldactone] 32.5 mg PO DAILY 07/26/17 [History] Past Medical History HEENT History: Reports: Cataract, Impaired Vision Cardiovascular History: Reports: Other (See Below) Other Cardiovascular History: hx heart cath Respiratory History: Reports: Bronchitis, Recurrent, Pneumonia, Recurrent, Sleep Apnea, Other (See Below) Other Respiratory History: tracheal/bronchial malasia Genitourinary History: Reports: Other (See Below) Other Genitourinary History: bladder repair [employer] History: Reports: Other OB/BYN History: bladder sling Neurological History: Reports: Other (See Below) Other Neuro History: nerve root decompression Psychiatric History: Reports: Depression Dermatologic History: Reports: Other (See Below) Other Dermatologic History: rashes due to allergic reactions - Infectious Disease History Infectious Disease History: Reports: Chicken Pox, Measles, Mumps - Past Surgical History HEENT Surgical History: Reports: Cataract Surgery, Tonsillectomy GI Surgical History: Reports: Appendectomy, Bariatric Procedure, Cholecystectomy , Colonoscopy, EGD, Hernia Repair/Other, Other (See Below) Female Surgical History: Reports: None Neurological Surgical History: Reports: Other (See Below) Other Neurological Surgeries/Procedures: herniated and deteriorating disks. tailbone surgery Other Musculoskeletal Surgeries/Procedures:: Foot surgery. ankle surgery. leads in spine from nerve stimulator Social & Family History - Family History Family Medical History: Noncontributory - Tobacco Use Smoking Status *Q: Never Smoker - Caffeine Use Caffeine Use: Reports: Coffee Other Caffeine Use: 1 to 2 cups per day - Recreational Drug Use Recreational Drug Use: No - Living Situation & Occupation Living situation: Reports: , with Spouse Occupation: Disabled ED ROS GENERAL - Review of Systems Review Of Systems: See Below Constitutional: Denies: Fever, Chills, Weakness, Diaphoresis HEENT: Denies: Ear Discharge, Ear Pain, Rhinitis, Sinus Problem, Throat Pain, Throat Swelling Respiratory: Reports: Cough, Sputum, Other (Sputum with green mucus production) . Denies: Shortness of Breath, Wheezing Cardiovascular: Denies: Chest Pain, Dyspnea on Exertion, Edema, Lightheadedness , Palpitations, PND, Syncope Endocrine: Reports: No Symptoms GI/Abdominal: Reports: Abdominal Pain, Diarrhea. Denies: Black Stool, Bloody Stool, Constipation, Difficulty Swallowing, Distension, Nausea, Vomiting : Reports: No Symptoms Musculoskeletal: Reports: No Symptoms Skin: Reports: No Symptoms Neurological: Reports: No Symptoms Psychiatric: Reports: No Symptoms Hematologic/Lymphatic: Reports: No Symptoms Immunologic: Reports: No Symptoms ED EXAM, GENERAL - Physical Exam Exam: See Below Free Text/Narrative:: Oxana is an alert and oriented 67 year old female presenting with continued cough, green mucus production and diarrhea. Exam Limited By: No Limitations General Appearance: Alert, WD/WN, No Apparent Distress Eye Exam: Bilateral Eye: Normal Inspection, PERRL Ears: Normal External Exam, Normal Canal, Hearing Grossly Normal, Normal TMs Ear Exam: Bilateral Ear: Auricle Normal, Canal Normal, TM normal Nose: Normal Inspection, Normal Mucosa, No Blood Throat/Mouth: Normal Inspection, Normal Lips, Normal Oropharynx, Normal Voice, No Airway Compromise Head: Atraumatic, Normocephalic Neck: Normal Inspection, Supple, Non-Tender, Full Range of Motion. No: Lymphadenopathy (R), Lymphadenopathy (L) Respiratory/Chest: No Respiratory Distress, No Accessory Muscle Use, Chest Non- Tender, Rhonchi. No: Crackles, Rales, Wheezing, Stridor, Pleural Rub, Retractions Cardiovascular: Normal Peripheral Pulses, Regular Rate, Rhythm, No Edema, No Murmur, No Rub Peripheral Pulses: 2+: Radial (L), Radial (R), Dorsalis Pedis (L), Dorsalis Pedis (R) GI/Abdominal: Normal Bowel Sounds, Soft, Non-Tender, No Distention, No Mass Back Exam: Normal Inspection, Full Range of Motion. No: CVA Tenderness (R), CVA Tenderness (L) Extremities: Normal Inspection, Normal Range of Motion, Non-Tender, No Pedal Edema, Normal Capillary Refill Neurological: Alert, Oriented, CN II-XII Intact, Normal Cognition, Normal Gait, No Motor/Sensory Deficits Psychiatric: Normal Affect, Normal Mood Skin Exam: Warm, Dry, Intact, Normal Color, No Rash Lymphatic: No Adenopathy Course - Vital Signs Last Recorded V/S: Last Vital Signs Temp 35.9 C 07/26/17 22:27 Pulse 86 07/26/17 22:27 Resp 20 07/26/17 22:27 BP 184/86 H 07/26/17 22:27 Pulse Ox 97 07/26/17 22:27 - Orders/Labs/Meds Orders: Active Orders 24 hr Category Date Time Status C DIFFICILE, CYTOTOXIN B Stat Lab 07/26/17 23:42 Ordered Labs: Laboratory Tests 07/26/17 07/26/17 Range/Units 23:55 23:55 WBC 7.7 (4.5-11.0) K/uL RBC 3.40 (3.30-5.50) M/uL Hgb 11.1 L (12.0-15.0) g/dL Hct 34.5 L (36.0-48.0) % MCV 102 H (80-98) fL MCH 33 H (27-31) pg MCHC 32 (32-36) % Plt Count 304 (150-400) K/uL Neut % (Auto) 68 H (36-66) % Lymph % (Auto) 18 L (24-44) % [place] % (Auto) 12 H (2-6) % Eos % (Auto) 2 (2-4) % Baso % (Auto) 0 (0-1) % Sodium 139 L (140-148) mmol/L Potassium 3.8 (3.6-5.2) mmol/L Chloride 106 (100-108) mmol/L Carbon Dioxide 27 (21-32) mmol/L Anion Gap 9.8 (5.0-14.0) mmol/L BUN 18 (7-18) mg/dL Creatinine 0.7 (0.6-1.0) mg/dL Est Cr Clr Drug Dosing TNP Estimated GFR (MDRD) > 60 (>60) Glucose 92 (74-106) mg/dL Calcium 8.4 L (8.5-10.1) mg/dL Total Bilirubin 0.4 D (0.2-1.0) mg/dL AST 18 (15-37) U/L ALT 25 (12-78) U/L Alkaline Phosphatase 59 (46-116) U/L Total Protein 5.7 L (6.4-8.2) g/dL Albumin 3.0 L (3.4-5.0) g/dL Globulin 2.7 (2.3-3.5) g/dL Albumin/Globulin Ratio 1.1 L (1.2-2.2) Patient lab work reviewed with Dr. Islas. Patient is most likely suffering from diarrhea as a side effect to use of augmenting and repeat chronic use of antibiotics. It would be best for her to continue with augmenting as Dr. Tam had ordered. - Re-Assessments/Exams Free Text/Narrative Re-Assessment/Exam: Patient had one loose stool while in ER, contaminated with urine. Specimen not able to be accepted. Departure - Departure Time of Disposition: 00:47 Disposition: Home, Self-Care 01 Condition: Fair Clinical Impression: Diarrhea, Bronchitis, Cough - Discharge Information Referrals: PCP,None [Primary Care Provider] - Forms: ED Department Discharge Additional Instructions: You have been evaluated and treated for bronchitis, cough and diarrhea. Diarrhea is most likely related to use of augmentin. Due to your history of antibiotic use, it is best to continue the aumentin to prevent further complications. Work on keeping yourself hydrated. Eat bananas, apple sauce, rice and toast (BRAT diet) to help with your digestive system/diarrhea. You can also use a probiotic to assist the natural caio of your gut. Take robitussin AC as directed for cough. Continue your other current medications. Follow up with Dr. Tam on FridayJuly 28, for follow up. Return for worsening, issues or concerns. - My Orders Last 24 Hours: My Active Orders 07/26/17 23:42 C DIFFICILE, CYTOTOXIN B Stat - Assessment/Plan Last 24 Hours: My Active Orders 07/26/17 23:42 C DIFFICILE, CYTOTOXIN B Stat Assessment:: Bronchitis, cough, diarrhea Plan: Patient evaluated and treated for bronchitis, cough and diarrhea. Diarrhea is most likely related to use of augmentin. Due to history of antibiotic use, it is best to continue the augmentin to prevent further complications. Work on keeping hydrated. Eat bananas, apple sauce, rice and toast (BRAT diet) to help with your digestive system/diarrhea. Probiotic to assist the natural caio of your gut. Take robitussin AC as directed for cough. Continue other current medications. Follow up with Dr. Tam on FridayJuly 28, for follow up. Return for worsening, issues or concerns. Bring in stool sample for C. dif testing.
== END 2017-07-27 01:01 | disposition home or self-care (01) ==
LOC: JP.ED 21:37
DX: J40 Bronchitis, not specified as acute or chronic (principal); R19.7 Diarrhea, unspecified; Z88.1 Allergy status to other antibiotic agents; Z88.2 Allergy status to sulfonamides; Z88.5 Allergy status to narcotic agent; Z79.899 Other long term (current) drug therapy
CPT/HCPCS: 36415; 80053; 85025; 99283; 99284